=== PATIENT | female | born 1945 | race Caucasian/White ===

== ENCOUNTER 2019-04-04 17:26 | Emergency (ER) | payer MEDICARE ==
[~2019-04-04] VITALS: Ht 162.6 cm; Wt 99.8 kg
[2019-04-04 18:00] LABS: BASOPHILS ABSOLUTE AUTO 0.05 K/mm3 (0.00-0.23); BASOPHILS PERCENT AUTO 1 % (0-2); EOSINOPHILS PERCENT AUTO 0 % (0-6); Hematocrit 38.2 % (33.0-51.0); Hemoglobin 12.4 g/dL (11.5-16.0); IMMATURE GRAN ABSOLUTE AUTO 0.03 K/mm3 (0.00-0.10); IMMATURE GRAN PERCENT AUTO 0 % (0-1); LYMPHOCYTES ABSOLUTE AUTO 1.34 K/mm3 (0.84-5.20); LYMPHOCYTES PERCENT AUTO 13 % (21-46); MONOCYTES ABSOLUTE AUTO 0.92 K/mm3 (0.16-1.47); MONOCYTES PERCENT AUTO 9 % (4-13); Mean Corpuscular HGB 25.2 pg (26.0-34.0); Mean Corpuscular HGB Conc 32.5 g/dL (31.5-36.5); Mean Corpuscular Volume 78 fL (80-100); Mean Platelet Volume 9.5 fL (9.1-12.4); NEUTROPHILS ABSOLUTE AUTO 7.76 K/mm3 (1.96-9.15); NEUTROPHILS PERCENT AUTO 77 % (41-73); Platelet Count 293 K/mm3 (150-400); RDW Coefficient Variation 16.4 % (11.7-14.2); RDW Standard Deviation 46.2 fL (35.1-46.3); Red Blood Cell Count 4.93 M/mm3 (3.80-5.20)
[2019-04-04 18:15] LABS: Albumin, Blood 3.4 g/dL (3.4-5.0); Albumin/Globulin Ratio 0.8 (0.8-1.8); Bilirubin, Total 0.5 mg/dL (0.1-1.0); Bun/Creatinine Ratio 14.6 (12.0-20.0); Calcium, Blood 9.1 mg/dL (8.5-10.1); Creatinine, Blood 1.03 mg/dL (0.40-1.00); Globulin, Blood 4.2 g/dL (2.2-4.0); Potassium, Blood 3.3 mmol/L (3.5-5.5); Total Protein, Blood 7.6 g/dL (6.4-8.2)
== END 2019-04-04 18:45 | disposition home or self-care (01) ==
LOC: ER 17:26
PROVIDERS: Emergency Medicine
DX: R53.83 Other fatigue (principal)
CPT/HCPCS: 80053; 85025; 99283

== ENCOUNTER 2020-05-21 19:32 | Emergency (ER) | payer MEDICARE ==
[~2020-05-21] VITALS: Ht 160 cm; Wt 88.5 kg
[2020-05-21 20:50] LABS: BASOPHILS ABSOLUTE AUTO 0.08 K/mm3 (0.00-0.23); BASOPHILS PERCENT AUTO 1 % (0-2); EOSINOPHILS ABSOLUTE AUTO 0.18 K/mm3 (0.00-0.68); EOSINOPHILS PERCENT AUTO 2 % (0-6); Hemoglobin 13.3 g/dL (11.5-16.0); IMMATURE GRAN ABSOLUTE AUTO 0.04 K/mm3 (0.00-0.10); IMMATURE GRAN PERCENT AUTO 0 % (0-1); LYMPHOCYTES ABSOLUTE AUTO 2.26 K/mm3 (0.84-5.20); LYMPHOCYTES PERCENT AUTO 23 % (21-46); MONOCYTES ABSOLUTE AUTO 0.54 K/mm3 (0.16-1.47); MONOCYTES PERCENT AUTO 6 % (4-13); Mean Corpuscular HGB 26.8 pg (26.0-34.0); Mean Corpuscular HGB Conc 32.4 g/dL (31.5-36.5); Mean Corpuscular Volume 83 fL (80-100); Mean Platelet Volume 9.7 fL (9.1-12.4); NEUTROPHILS ABSOLUTE AUTO 6.59 K/mm3 (1.96-9.15); NEUTROPHILS PERCENT AUTO 68 % (41-73); Platelet Count 382 K/mm3 (150-400); RDW Coefficient Variation 16.4 % (11.7-14.2); RDW Standard Deviation 49.4 fL (35.1-46.3); Red Blood Cell Count 4.96 M/mm3 (3.80-5.20); White Blood Cell Count 9.69 K/mm3 (4.00-11.30)
[2020-05-21 21:22] LABS: Albumin, Blood 3.7 g/dL (3.4-5.0); Albumin/Globulin Ratio 0.9 (0.8-1.8); Bilirubin, Total 0.3 mg/dL (0.1-1.0); Bun/Creatinine Ratio 14.4 (12.0-20.0); Calcium, Blood 9.5 mg/dL (8.5-10.1); Creatinine, Blood 1.18 mg/dL (0.40-1.00); Globulin, Blood 4.1 g/dL (2.2-4.0); Potassium, Blood 3.9 mmol/L (3.5-5.5); Total Protein, Blood 7.8 g/dL (6.4-8.2)
[2020-05-21 22:17] LABS: Magnesium, Blood 1.9 mg/dL (1.6-2.4); Troponin I <0.015 ng/mL (0.000-0.040)
[2020-05-21 22:39] LABS: Source, Urine Clean Catch
[2020-05-21 22:41] LABS: Bilirubin, Urine Neg (Neg); Blood, Urine Neg (Neg); Glucose Qualitative, Urine Neg (Neg); Ketones, Urine Neg (Neg); Leukocyte Esterase, Urine 3+ (Neg); Nitrite, Urine Neg (Neg); Protein, Urine Neg (Neg); Urobilinogen, Urine NORM (Normal)
[2020-05-21 22:44] LABS: Appearance, Urine Clear (Clear); Color, Urine Yellow (P-Yellow)
[2020-05-21 22:51] LABS: Bacteria Few /hpf; Red Blood Cells, Urine 0-2 /hpf (0-2); Squamous Epithelial Cells Few /hpf (Few)
== END 2020-05-21 23:55 | disposition home or self-care (01) ==
LOC: ER 19:32
PROVIDERS: Emergency Medicine; Physician Assistant
DX: R53.1 Weakness (principal); R07.2 Precordial pain; E11.9 Type 2 diabetes mellitus without complications; I10 Essential (primary) hypertension; Z87.891 Personal history of nicotine dependence
CPT/HCPCS: 36415; 70450; 71045; 80053; 81001; 83735; 84484; 85025; 87086; 93005; 93010; 99285-25

== ENCOUNTER 2020-10-12 10:35 | Emergency (ER) | payer MEDICARE ==
[~2020-10-12] VITALS: Ht 160 cm; Wt 96.6 kg
[2020-10-12 11:13] LABS: BASOPHILS ABSOLUTE AUTO 0.05 K/mm3 (0.00-0.23); BASOPHILS PERCENT AUTO 1 % (0-2); EOSINOPHILS ABSOLUTE AUTO 0.11 K/mm3 (0.00-0.68); EOSINOPHILS PERCENT AUTO 1 % (0-6); Hematocrit 36.1 % (33.0-51.0); Hemoglobin 11.7 g/dL (11.5-16.0); IMMATURE GRAN ABSOLUTE AUTO 0.07 K/mm3 (0.00-0.10); IMMATURE GRAN PERCENT AUTO 1 % (0-1); LYMPHOCYTES ABSOLUTE AUTO 1.95 K/mm3 (0.84-5.20); LYMPHOCYTES PERCENT AUTO 19 % (21-46); MONOCYTES ABSOLUTE AUTO 0.49 K/mm3 (0.16-1.47); MONOCYTES PERCENT AUTO 5 % (4-13); Mean Corpuscular HGB Conc 32.4 g/dL (31.5-36.5); Mean Corpuscular Volume 83 fL (80-100); Mean Platelet Volume 9.9 fL (9.1-12.4); NEUTROPHILS ABSOLUTE AUTO 7.57 K/mm3 (1.96-9.15); NEUTROPHILS PERCENT AUTO 74 % (41-73); Platelet Count 308 K/mm3 (150-400); RDW Coefficient Variation 15.5 % (11.7-14.2); RDW Standard Deviation 47.6 fL (35.1-46.3); Red Blood Cell Count 4.33 M/mm3 (3.80-5.20); White Blood Cell Count 10.24 K/mm3 (4.00-11.30)
[2020-10-12 11:48] LABS: Alanine Aminotransfer (ALT/SGP 16 U/L (12-78); Albumin, Blood 3.5 g/dL (3.4-5.0); Albumin/Globulin Ratio 0.9 (0.8-1.8); Alk Phos 114 U/L (50-136); Anion Gap 8 mmol/L (6-16); Aspartate Aminotrans (AST/SGOT 8 U/L (12-37); Bilirubin, Total 0.4 mg/dL (0.1-1.0); Blood Urea Nitrogen 17 mg/dL (8-24); Bun/Creatinine Ratio 15.6 (12.0-20.0); CO2, Blood 25 mmol/L (21-32); Chloride, Blood 104 mmol/L (98-108); Creatinine, Blood 1.09 mg/dL (0.40-1.00); Globulin, Blood 3.9 g/dL (2.2-4.0); Glomerular Filtration Rate 49 (60-); Glucose, Blood 163 mg/dL (70-99); Potassium, Blood 3.6 mmol/L (3.5-5.5); Sodium, Blood 137 mmol/L (136-145); Total Protein, Blood 7.4 g/dL (6.4-8.2); Troponin I <0.015 ng/mL (0.000-0.040)
[2020-10-12] MEDS ORDERED: HYDR1TAB94 PO (13:51)
== END 2020-10-12 14:00 | disposition home or self-care (01) ==
LOC: ER 10:35
PROVIDERS: Emergency Medicine
DX: S70.02XA Contusion of left hip, initial encounter (principal); W18.30XA Fall on same level, unspecified, initial encounter
CPT/HCPCS: 36415; 72192; 73502; 80053; 84484; 85025; 93005; 93010; 96374; 96375; 99284-25; J2270; J2405

== ENCOUNTER → 2020-10-29 | Outpatient (CLI) | payer MEDICARE ==
[~2020-10-29] MED LIST: HYDR1TAB94 PO
[2020-10-29 15:30] LABS: Source, Urine Clean Catch
[2020-10-29 16:18] LABS: Appearance, Urine Clear (Clear); Bilirubin, Urine Neg (Neg); Blood, Urine Neg (Neg); Color, Urine Yellow (P-Yellow); Glucose Qualitative, Urine Neg (Neg); Ketones, Urine Neg (Neg); Leukocyte Esterase, Urine Neg (Neg); Nitrite, Urine Neg (Neg); Protein, Urine Neg (Neg); Specific Gravity, Urine 1.005 (1.003-1.022); Urobilinogen, Urine NORM (Normal)
== END | disposition home or self-care (01) ==
LOC: LAB SHORT 15:29 → LAB 15:29
PROVIDERS: Nurse Practitioner Family
DX: G47.51 Confusional arousals (principal)
CPT/HCPCS: 81003

== ENCOUNTER 2021-02-08 17:10 | Emergency (ER) | payer MEDICARE ==
[~2021-02-08] VITALS: Ht 165.1 cm; Wt 88.5 kg
[2021-02-08 17:51] LABS: BASOPHILS ABSOLUTE AUTO 0.09 K/mm3 (0.00-0.23); BASOPHILS PERCENT AUTO 1 % (0-2); EOSINOPHILS ABSOLUTE AUTO 0.12 K/mm3 (0.00-0.68); EOSINOPHILS PERCENT AUTO 1 % (0-6); Hematocrit 37.9 % (33.0-51.0); Hemoglobin 12.2 g/dL (11.5-16.0); IMMATURE GRAN ABSOLUTE AUTO 0.06 K/mm3 (0.00-0.10); IMMATURE GRAN PERCENT AUTO 1 % (0-1); LYMPHOCYTES ABSOLUTE AUTO 1.87 K/mm3 (0.84-5.20); LYMPHOCYTES PERCENT AUTO 18 % (21-46); MONOCYTES ABSOLUTE AUTO 0.86 K/mm3 (0.16-1.47); MONOCYTES PERCENT AUTO 8 % (4-13); Mean Corpuscular HGB 26.3 pg (26.0-34.0); Mean Corpuscular HGB Conc 32.2 g/dL (31.5-36.5); Mean Corpuscular Volume 82 fL (80-100); Mean Platelet Volume 9.8 fL (9.1-12.4); NEUTROPHILS ABSOLUTE AUTO 7.32 K/mm3 (1.96-9.15); NEUTROPHILS PERCENT AUTO 71 % (41-73); Platelet Count 292 K/mm3 (150-400); Red Blood Cell Count 4.63 M/mm3 (3.80-5.20); White Blood Cell Count 10.32 K/mm3 (4.00-11.30)
[2021-02-08 18:15] LABS: Alanine Aminotransfer (ALT/SGP 76 U/L (12-78); Albumin, Blood 2.7 g/dL (3.4-5.0); Albumin/Globulin Ratio 0.6 (0.8-1.8); Alk Phos 264 U/L (50-136); Anion Gap 6 mmol/L (6-16); Aspartate Aminotrans (AST/SGOT 109 U/L (12-37); Bilirubin, Total 0.4 mg/dL (0.1-1.0); Blood Urea Nitrogen 13 mg/dL (8-24); Bun/Creatinine Ratio 12.3 (12.0-20.0); CO2, Blood 27 mmol/L (21-32); Calcium, Blood 8.9 mg/dL (8.5-10.1); Chloride, Blood 102 mmol/L (98-108); Creatinine, Blood 1.06 mg/dL (0.40-1.00); Globulin, Blood 4.5 g/dL (2.2-4.0); Glomerular Filtration Rate 51 (60-); Glucose, Blood 104 mg/dL (70-99); Potassium, Blood 3.5 mmol/L (3.5-5.5); Sodium, Blood 135 mmol/L (136-145); Total Protein, Blood 7.2 g/dL (6.4-8.2); Troponin I <0.015 ng/mL (0.000-0.040)
[2021-02-08] MEDS ORDERED: Amoxicillin875 MG PO (19:14)
[2021-02-08] MEDS ORDERED: Magnesium Citr296 ML PO (19:14)
[2021-02-08] MEDS ORDERED: Colace100 MG PO (19:14)
== END 2021-02-08 20:25 | disposition home or self-care (01) ==
LOC: ER 17:10
PROVIDERS: Physician Assistant
DX: R05.9 Cough, unspecified (principal); R06.02 Shortness of breath; Z79.899 Other long term (current) drug therapy
CPT/HCPCS: 36415; 71046; 80053; 83690; 83880; 84484; 85025; 93005; 93010; 99284-25

== ENCOUNTER 2021-02-12 11:46 | Emergency (ER) | payer MEDICARE ==
[~2021-02-12] VITALS: Ht 160 cm; Wt 95.7 kg
[~2021-02-12 11:46] MED LIST changes: +Amoxicillin875 MG PO; +Colace100 MG PO; +Magnesium Citr296 ML PO
[2021-02-12 12:27] LABS: BASOPHILS ABSOLUTE AUTO 0.08 K/mm3 (0.00-0.23); BASOPHILS PERCENT AUTO 1 % (0-2); EOSINOPHILS ABSOLUTE AUTO 0.05 K/mm3 (0.00-0.68); EOSINOPHILS PERCENT AUTO 0 % (0-6); Hematocrit 36.6 % (33.0-51.0); Hemoglobin 11.7 g/dL (11.5-16.0); IMMATURE GRAN ABSOLUTE AUTO 0.09 K/mm3 (0.00-0.10); IMMATURE GRAN PERCENT AUTO 1 % (0-1); LYMPHOCYTES ABSOLUTE AUTO 1.93 K/mm3 (0.84-5.20); LYMPHOCYTES PERCENT AUTO 14 % (21-46); MONOCYTES ABSOLUTE AUTO 1.08 K/mm3 (0.16-1.47); MONOCYTES PERCENT AUTO 8 % (4-13); Mean Corpuscular HGB 25.8 pg (26.0-34.0); Mean Corpuscular Volume 81 fL (80-100); Mean Platelet Volume 9.7 fL (9.1-12.4); NEUTROPHILS PERCENT AUTO 76 % (41-73); Platelet Count 252 K/mm3 (150-400); RDW Coefficient Variation 15.1 % (11.7-14.2); RDW Standard Deviation 44.2 fL (35.1-46.3); Red Blood Cell Count 4.54 M/mm3 (3.80-5.20); White Blood Cell Count 13.63 K/mm3 (4.00-11.30)
[2021-02-12 12:51] LABS: Alanine Aminotransfer (ALT/SGP 69 U/L (12-78); Albumin, Blood 2.4 g/dL (3.4-5.0); Albumin/Globulin Ratio 0.6 (0.8-1.8); Alk Phos 279 U/L (50-136); Anion Gap 11 mmol/L (6-16); Aspartate Aminotrans (AST/SGOT 104 U/L (12-37); Bilirubin, Total 0.6 mg/dL (0.1-1.0); Blood Urea Nitrogen 14 mg/dL (8-24); Bun/Creatinine Ratio 14.7 (12.0-20.0); CO2, Blood 21 mmol/L (21-32); Calcium, Blood 8.6 mg/dL (8.5-10.1); Chloride, Blood 101 mmol/L (98-108); Creatinine, Blood 0.95 mg/dL (0.40-1.00); Globulin, Blood 4.3 g/dL (2.2-4.0); Glomerular Filtration Rate 57 (60-); Glucose, Blood 108 mg/dL (70-99); Potassium, Blood 3.5 mmol/L (3.5-5.5); Sodium, Blood 133 mmol/L (136-145); Total Protein, Blood 6.7 g/dL (6.4-8.2); Troponin I <0.015 ng/mL (0.000-0.040)
[2021-02-12 13:26] LABS: Influenza A, PCR NEGATIVE (NEGATIVE); Influenza B, PCR NEGATIVE (NEGATIVE); Resp Syncytial Virus, PCR NEGATIVE (NEGATIVE); SARS-Cov-2 (COVID-19) PCR, MMC NEGATIVE (NEGATIVE)
[2021-02-12] MEDS ORDERED: ALBU90OI INH (15:29)
== END 2021-02-12 15:45 | disposition home or self-care (01) ==
LOC: ER 11:46
PROVIDERS: Emergency Medicine
DX: J20.9 Acute bronchitis, unspecified (principal); J42 Unspecified chronic bronchitis; E11.9 Type 2 diabetes mellitus without complications; I10 Essential (primary) hypertension; Z79.899 Other long term (current) drug therapy
CPT/HCPCS: 0241U; 36415; 71045; 74018; 80053; 84145; 84484; 85025; 93005; 93010; 99285-25; A9270

== ENCOUNTER 2021-02-16 20:20 | Emergency (ER) | payer MEDICARE ==
[~2021-02-16] VITALS: Ht 160 cm; Wt 90.7 kg
[~2021-02-16 20:20] MED LIST changes: +ALBU90OI INH
[2021-02-16 20:47] LABS: BASOPHILS ABSOLUTE AUTO 0.05 K/mm3 (0.00-0.23); BASOPHILS PERCENT AUTO 0 % (0-2); EOSINOPHILS ABSOLUTE AUTO 0.05 K/mm3 (0.00-0.68); EOSINOPHILS PERCENT AUTO 0 % (0-6); Hematocrit 35.4 % (33.0-51.0); Hemoglobin 11.4 g/dL (11.5-16.0); IMMATURE GRAN ABSOLUTE AUTO 0.14 K/mm3 (0.00-0.10); IMMATURE GRAN PERCENT AUTO 1 % (0-1); LYMPHOCYTES ABSOLUTE AUTO 2.94 K/mm3 (0.84-5.20); LYMPHOCYTES PERCENT AUTO 19 % (21-46); MONOCYTES ABSOLUTE AUTO 1.85 K/mm3 (0.16-1.47); MONOCYTES PERCENT AUTO 12 % (4-13); Mean Corpuscular HGB 25.8 pg (26.0-34.0); Mean Corpuscular HGB Conc 32.2 g/dL (31.5-36.5); Mean Corpuscular Volume 80 fL (80-100); Mean Platelet Volume 10.1 fL (9.1-12.4); NEUTROPHILS ABSOLUTE AUTO 10.16 K/mm3 (1.96-9.15); NEUTROPHILS PERCENT AUTO 67 % (41-73); Platelet Count 276 K/mm3 (150-400); RDW Coefficient Variation 15.2 % (11.7-14.2); RDW Standard Deviation 44.1 fL (35.1-46.3); Red Blood Cell Count 4.42 M/mm3 (3.80-5.20); White Blood Cell Count 15.19 K/mm3 (4.00-11.30)
[2021-02-16] MEDS ORDERED: DONEPEZIL HCL10 M1 PO (20:53)
[2021-02-16] MEDS ORDERED: AMLODIPINE BES2.5 MG PO (20:54)
[2021-02-16] MEDS ORDERED: ATORVASTATIN CA20 MG PO (20:54)
[2021-02-16] MEDS ORDERED: GLIP10 (20:54)
[2021-02-16] MEDS ORDERED: BUPR100ER PO (20:54)
[2021-02-16] MEDS ORDERED: MEMANTINE HCL PO (20:55)
[2021-02-16] MEDS ORDERED: LOSARTAN POTAS100 MG PO (20:55)
[2021-02-16] MEDS ORDERED: HYDCHL12.5 PO (20:55)
[2021-02-16] MEDS ORDERED: KLOR-CON 1010 ME5 PO (20:56)
[2021-02-16] MEDS ORDERED: OMEP20ER PO (20:56)
[2021-02-16 20:58] LABS: Source, Urine Clean Catch
[2021-02-16 21:02] LABS: Appearance, Urine Hazy (Clear); Bilirubin, Urine Neg (Neg); Blood, Urine 1+ (Neg); Color, Urine Amber (P-Yellow); Glucose Qualitative, Urine Neg (Neg); Ketones, Urine Neg (Neg); Leukocyte Esterase, Urine Neg (Neg); Nitrite, Urine Neg (Neg); Protein, Urine 2+ (Neg); Urobilinogen, Urine 2+ (Normal)
[2021-02-16 21:08] LABS: Troponin I <0.015 ng/mL (0.000-0.040)
[2021-02-16 21:12] LABS: Alanine Aminotransfer (ALT/SGP 60 U/L (12-78); Albumin, Blood 2.1 g/dL (3.4-5.0); Albumin/Globulin Ratio 0.5 (0.8-1.8); Alk Phos 274 U/L (50-136); Anion Gap 9 mmol/L (6-16); Aspartate Aminotrans (AST/SGOT 104 U/L (12-37); Bilirubin, Total 0.8 mg/dL (0.1-1.0); Blood Urea Nitrogen 21 mg/dL (8-24); Bun/Creatinine Ratio 17.6 (12.0-20.0); CO2, Blood 24 mmol/L (21-32); Calcium, Blood 8.3 mg/dL (8.5-10.1); Chloride, Blood 98 mmol/L (98-108); Creatinine, Blood 1.19 mg/dL (0.40-1.00); Globulin, Blood 4.4 g/dL (2.2-4.0); Glomerular Filtration Rate 44 (60-); Glucose, Blood 147 mg/dL (70-99); Potassium, Blood 3.1 mmol/L (3.5-5.5); Sodium, Blood 131 mmol/L (136-145); Total Protein, Blood 6.5 g/dL (6.4-8.2)
[2021-02-16 21:22] LABS: Red Blood Cells, Urine 0-2 /hpf (0-2)
[2021-02-16 21:24] LABS: Bacteria Few /hpf; Mucus Light (0-Heavy); Squamous Epithelial Cells Few /hpf (Few); WBC Cast 0-2 /lpf (0)
[2021-02-16 21:25] LABS: Other Crystals Mod /hpf
== END 2021-02-16 23:50 | disposition home or self-care (01) ==
LOC: ER 20:20
PROVIDERS: Emergency Medicine
DX: J20.9 Acute bronchitis, unspecified (principal); E86.0 Dehydration; I10 Essential (primary) hypertension; Z79.899 Other long term (current) drug therapy; Z79.84 Long term (current) use of oral hypoglycemic drugs
CPT/HCPCS: 36415; 71045; 73502; 80053; 81001; 83880; 84484; 85025; 93005; 93010; 99284-25; A9270; J7120

== ENCOUNTER 2021-03-05 11:35 | Emergency (ER) | payer MEDICARE ==
[~2021-03-05] VITALS: Ht 160 cm; Wt 90.7 kg
[~2021-03-05 11:35] MED LIST changes: +AMLODIPINE BES2.5 MG PO; +ATORVASTATIN CA20 MG PO; +BUPR100ER PO; +DONEPEZIL HCL10 M1 PO; +GLIP10; +HYDCHL12.5 PO; +KLOR-CON 1010 ME5 PO; +LOSARTAN POTAS100 MG PO; +MEMANTINE HCL PO; +OMEP20ER PO
[2021-03-05 13:26] LABS: Alanine Aminotransfer (ALT/SGP 83 U/L (12-78); Albumin/Globulin Ratio 0.5 (0.8-1.8); Alk Phos 350 U/L (50-136); Anion Gap 10 mmol/L (6-16); Aspartate Aminotrans (AST/SGOT 172 U/L (12-37); Bilirubin, Total 1.5 mg/dL (0.1-1.0); Blood Urea Nitrogen 18 mg/dL (8-24); CO2, Blood 27 mmol/L (21-32); Calcium, Blood 8.7 mg/dL (8.5-10.1); Chloride, Blood 99 mmol/L (98-108); Creatinine, Blood 0.95 mg/dL (0.40-1.00); Globulin, Blood 4.4 g/dL (2.2-4.0); Glomerular Filtration Rate 58 (60-); Glucose, Blood 94 mg/dL (70-99); Potassium, Blood 3.6 mmol/L (3.5-5.5); Sodium, Blood 136 mmol/L (136-145); Total Protein, Blood 6.4 g/dL (6.4-8.2); Troponin I <0.015 ng/mL (0.000-0.040)
[2021-03-05 13:39] LABS: BASOPHILS PERCENT AUTO 1 % (0-2); EOSINOPHILS ABSOLUTE AUTO 0.04 K/mm3 (0.00-0.68); EOSINOPHILS PERCENT AUTO 0 % (0-6); Hematocrit 38.4 % (33.0-51.0); Hemoglobin 12.1 g/dL (11.5-16.0); IMMATURE GRAN ABSOLUTE AUTO 0.12 K/mm3 (0.00-0.10); IMMATURE GRAN PERCENT AUTO 1 % (0-1); LYMPHOCYTES ABSOLUTE AUTO 2.38 K/mm3 (0.84-5.20); LYMPHOCYTES PERCENT AUTO 18 % (21-46); MONOCYTES ABSOLUTE AUTO 1.43 K/mm3 (0.16-1.47); MONOCYTES PERCENT AUTO 11 % (4-13); Mean Corpuscular HGB 24.7 pg (26.0-34.0); Mean Corpuscular HGB Conc 31.5 g/dL (31.5-36.5); Mean Corpuscular Volume 78 fL (80-100); Mean Platelet Volume 9.8 fL (9.1-12.4); NEUTROPHILS ABSOLUTE AUTO 9.26 K/mm3 (1.96-9.15); NEUTROPHILS PERCENT AUTO 69 % (41-73); Platelet Count 265 K/mm3 (150-400); RDW Coefficient Variation 16.9 % (11.7-14.2); RDW Standard Deviation 47.8 fL (35.1-46.3); White Blood Cell Count 13.33 K/mm3 (4.00-11.30)
== END 2021-03-05 15:05 | disposition home or self-care (01) ==
LOC: ER 11:35
PROVIDERS: Emergency Medicine
DX: R07.9 Chest pain, unspecified (principal); I10 Essential (primary) hypertension; E11.9 Type 2 diabetes mellitus without complications; F03.90 Unspecified dementia, unspecified severity, without behavioral disturbance, psychotic disturbance, mood disturbance, and anxiety; Z79.899 Other long term (current) drug therapy
CPT/HCPCS: 71045; 80053; 83690; 84484; 85025; 93005; 93010; 99285-25

== ENCOUNTER 2021-03-24 12:48 | Inpatient (IN) | payer MEDICARE ==
[~2021-03-24] VITALS: Ht 160 cm; Wt 72.6 kg
[2021-03-24 13:36] LABS: BASOPHILS ABSOLUTE AUTO 0.04 K/mm3 (0.00-0.23); BASOPHILS PERCENT AUTO 0 % (0-2); EOSINOPHILS ABSOLUTE AUTO 0.02 K/mm3 (0.00-0.68); EOSINOPHILS PERCENT AUTO 0 % (0-6); Hematocrit 48.8 % (33.0-51.0); Hemoglobin 15.9 g/dL (11.5-16.0); IMMATURE GRAN ABSOLUTE AUTO 0.13 K/mm3 (0.00-0.10); IMMATURE GRAN PERCENT AUTO 1 % (0-1); LYMPHOCYTES ABSOLUTE AUTO 2.86 K/mm3 (0.84-5.20); LYMPHOCYTES PERCENT AUTO 18 % (21-46); MONOCYTES ABSOLUTE AUTO 1.13 K/mm3 (0.16-1.47); MONOCYTES PERCENT AUTO 7 % (4-13); Mean Corpuscular HGB 24.6 pg (26.0-34.0); Mean Corpuscular HGB Conc 32.6 g/dL (31.5-36.5); Mean Corpuscular Volume 75 fL (80-100); NEUTROPHILS ABSOLUTE AUTO 11.95 K/mm3 (1.96-9.15); NEUTROPHILS PERCENT AUTO 74 % (41-73); Platelet Count 194 K/mm3 (150-400); RDW Coefficient Variation 21.1 % (11.7-14.2); RDW Standard Deviation 51.9 fL (35.1-46.3); Red Blood Cell Count 6.47 M/mm3 (3.80-5.20); White Blood Cell Count 16.13 K/mm3 (4.00-11.30)
[2021-03-24 13:38] LABS: Mean Platelet Volume 10.3 fL (9.1-12.4)
[2021-03-24 14:06] LABS: Albumin, Blood 2.4 g/dL (3.4-5.0); Albumin/Globulin Ratio 0.5 (0.8-1.8); Bilirubin, Total 2.7 mg/dL (0.1-1.0); Bun/Creatinine Ratio 18.2 (12.0-20.0); Calcium, Blood 8.5 mg/dL (8.5-10.1); Creatinine, Blood 4.45 mg/dL (0.40-1.00); Globulin, Blood 4.7 g/dL (2.2-4.0); Potassium, Blood 4.1 mmol/L (3.5-5.5); Total Protein, Blood 7.1 g/dL (6.4-8.2)
[2021-03-24 14:23] LABS: Influenza A, PCR NEGATIVE (NEGATIVE); Influenza B, PCR NEGATIVE (NEGATIVE); Resp Syncytial Virus, PCR NEGATIVE (NEGATIVE); SARS-Cov-2 (COVID-19) PCR, MMC NEGATIVE (NEGATIVE)
[2021-03-24 15:07] LABS: International Normalized Ratio 2.13; Prothrombin Time Results 21.3 Sec (9.7-11.5)
[2021-03-24 16:50] LABS: Source, Urine Catheter
[2021-03-24 16:55] LABS: Blood, Urine 1+ (Neg); Color, Urine Amber (P-Yellow); Glucose Qualitative, Urine Neg (Neg); Ketones, Urine Neg (Neg); Leukocyte Esterase, Urine 1+ (Neg); Nitrite, Urine Neg (Neg); Protein, Urine 2+ (Neg); Urobilinogen, Urine 2+ (Normal)
[2021-03-24 16:59] LABS: Bilirubin, Urine 1+ (Neg)
[2021-03-24 17:11] LABS: Appearance, Urine Hazy (Clear)
[2021-03-24 17:15] LABS: Bacteria Many /hpf; Red Blood Cells, Urine 0-2 /hpf (0-2); Squamous Epithelial Cells Few /hpf (Few)
[2021-03-24] MEDS ORDERED: BUPR150ER PO (21:40)
[2021-03-24 21:43] LABS: Albumin, Blood 1.6 g/dL (3.4-5.0); Anion Gap 17 mmol/L (6-16); Blood Urea Nitrogen 76 mg/dL (8-24); Bun/Creatinine Ratio 20.1 (12.0-20.0); CO2, Blood 17 mmol/L (21-32); Calcium, Blood 7.2 mg/dL (8.5-10.1); Chloride, Blood 104 mmol/L (98-108); Creatinine, Blood 3.79 mg/dL (0.40-1.00); Glomerular Filtration Rate 12 (60-); Glucose, Blood 128 mg/dL (70-99); Phosphorus, Blood 5.7 mg/dL (2.5-4.9); Potassium, Blood 3.8 mmol/L (3.5-5.5); Sodium, Blood 138 mmol/L (136-145)
--- NOTE | 2021-03-25 04:48 | NUR ---
PATIENT WAS ALERT AND ORIENTED X2, PATIENT'S BP WAS ON THE LOW END BUT IT IMPROVED AFTER GIVING HER SOME NORMAL SALINE. PATIENT COMPLAINED OF PAIN AND WAS GIVEN TRAMADOL BUT SHE WAS STILL IN PAIN SO SHE WAS TREATED WITH OXYCODONE. CALL LIGHT WITH IN REACH AND BED DOWN TO THE LOWEST POSITION, WILL CONTINUE TO MONITOR UNTIL HAND OFF.
[2021-03-25 05:31] LABS: Hematocrit 37.1 % (33.0-51.0); Mean Corpuscular HGB 24.4 pg (26.0-34.0); Mean Corpuscular HGB Conc 32.3 g/dL (31.5-36.5); Mean Corpuscular Volume 76 fL (80-100); Mean Platelet Volume 10.5 fL (9.1-12.4); Platelet Count 178 K/mm3 (150-400); RDW Coefficient Variation 20.1 % (11.7-14.2); RDW Standard Deviation 52.9 fL (35.1-46.3); Red Blood Cell Count 4.91 M/mm3 (3.80-5.20); White Blood Cell Count 15.14 K/mm3 (4.00-11.30)
[2021-03-25 05:47] LABS: International Normalized Ratio 2.24; Prothrombin Time Results 22.3 Sec (9.7-11.5)
[2021-03-25 06:48] LABS: Albumin, Blood 1.7 g/dL (3.4-5.0); Albumin/Globulin Ratio 0.4 (0.8-1.8); Bilirubin, Total 2.3 mg/dL (0.1-1.0); Bun/Creatinine Ratio 22.2 (12.0-20.0); Calcium, Blood 7.9 mg/dL (8.5-10.1); Creatinine, Blood 3.51 mg/dL (0.40-1.00); Globulin, Blood 3.8 g/dL (2.2-4.0); Potassium, Blood 3.8 mmol/L (3.5-5.5); Total Protein, Blood 5.5 g/dL (6.4-8.2)
[2021-03-25 11:12] LABS: Alpha Feto Protein, Tumor Mkr 4.3 ng/mL (0.0-8.0); Carcinoembryonic Antigen 115.7 ng/mL (0.0-3.0)
--- NOTE | 2021-03-25 17:15 | NUR ---
SHIFT SUMMARY; PATIENT WAS COMPLAINING OF PAIN IN HER BACK CHEST AND ABDOMEN. CHEST PAIN COULD BE REPRODUCED WITH PALPITATION. GOT WORSE WITH INSPIRATION AND EXPIRATIONS. HEEL SEAT TRIMMER ADVISED NO CHANGES IN RHYTHM OR RATE. NOTIFIED AND VERBAL ORDER TO START IV SOLUMEDROL 60MG Q12 FIRST DOSE NOW. PATIENT RECEIVED MRI OF HEAD TODAY. SHE TOLERATED WELL. NADN WHEN PAITENT RETURNED TO ROOM. PATIENT WAS MEDICATED WITH 10MG ROXYCODONE 15 MINPRIOR TO MRI AND 25MG IV FENTANYL 1 HOUR PRIOR TO MRI WITH MINIMAL RESULTS. PATIENT HAS HERNANDEZ IN PLACE WITH JASS URINE NOTED. WILL CONTINUE TO MONITOR THIS PATIENT UNTIL HAND OFF AND REPORT TO NOC SHIFT RN REEMA BUTT RN
--- NOTE | 2021-03-26 04:29 | NUR ---
PATIENT WAS ALERT AND ORIENTED X3, STABLE VITAL SIGNS, NO ACUTE CHANGES. PATIENT DENIED ANY PAIN. HERNANDEZ WAS PATENT. PATIENT SLEPT FOR MOST OF THE NIGHT. CALL LIGHT WITHIN REACH AND BED DOWN TO THE LOWEST POSITION. WILL CONTINUE TO MONITOR UNTIL HAND OFF.
[2021-03-26 05:16] LABS: BASOPHILS ABSOLUTE AUTO 0.01 K/mm3 (0.00-0.23); BASOPHILS PERCENT AUTO 0 % (0-2); EOSINOPHILS PERCENT AUTO 0 % (0-6); Hematocrit 41.2 % (33.0-51.0); IMMATURE GRAN PERCENT AUTO 1 % (0-1); LYMPHOCYTES ABSOLUTE AUTO 1.31 K/mm3 (0.84-5.20); LYMPHOCYTES PERCENT AUTO 10 % (21-46); MONOCYTES ABSOLUTE AUTO 0.13 K/mm3 (0.16-1.47); MONOCYTES PERCENT AUTO 1 % (4-13); Mean Corpuscular HGB 24.3 pg (26.0-34.0); Mean Corpuscular HGB Conc 31.6 g/dL (31.5-36.5); Mean Corpuscular Volume 77 fL (80-100); Mean Platelet Volume 9.9 fL (9.1-12.4); NEUTROPHILS ABSOLUTE AUTO 11.47 K/mm3 (1.96-9.15); NEUTROPHILS PERCENT AUTO 88 % (41-73); Platelet Count 188 K/mm3 (150-400); RDW Coefficient Variation 21.2 % (11.7-14.2); RDW Standard Deviation 55.7 fL (35.1-46.3); Red Blood Cell Count 5.36 M/mm3 (3.80-5.20); White Blood Cell Count 13.02 K/mm3 (4.00-11.30)
[2021-03-26 05:58] LABS: Albumin, Blood 1.9 g/dL (3.4-5.0); Albumin/Globulin Ratio 0.5 (0.8-1.8); Bilirubin, Total 2.6 mg/dL (0.1-1.0); Bun/Creatinine Ratio 26.2 (12.0-20.0); Calcium, Blood 8.5 mg/dL (8.5-10.1); Creatinine, Blood 2.79 mg/dL (0.40-1.00); Globulin, Blood 4.1 g/dL (2.2-4.0); Potassium, Blood 4.5 mmol/L (3.5-5.5)
[2021-03-26 06:09] LABS: HBSAG SCREEN Negative (Negative); HEP A AB, IGM Negative (Negative); HEP B CORE AB, IGM Negative (Negative); HEP C VIRUS AB <0.1 (0.0-0.9)
--- NOTE | 2021-03-26 11:41 | NUR ---
Spoke to pt's daughter Jese Cleveland" by phone. She stated she had spoken to Dr. Pérez regarding what appears to possibly be metastatic cancer causing pt's weight loss, memory issues, etc. She likely still has the Alzheimer's comorbidity as well. Liver biopsy is scheduled for tomorrow, and then the diagnosis will be definitive. Pt's daughter Latasha has vast healthcare experience, and understands what the current prognosis appears to be. She is planning to take pt home with hospice once diagnosis is in place. Pt is pleasantly confused, and pain appears to be well controlled at this time.
--- NOTE | 2021-03-26 13:32 | NUR ---
Pt's daughter is visiting today, and pt is very tearful. She does remember the conversation with the doctor yesterday, and that she has cancer. She is wanting to go home, and unfortunately a liver biopsy can't be done until pt's INR has improved. Due to the labwork and the imaging, the cancer diagnosis is clear, even without the biopsy. Family would like to take pt home, and this was confirmed by Dr. Alvarado. Plan for [facility] today, with d/c home tomorrow. Pt will be admitted to hospice services, unsure of agency at this time. Daughter's preference is [facility].
[2021-03-26 13:45] LABS: International Normalized Ratio 1.31; Prothrombin Time Results 13.5 Sec (9.7-11.5)
--- NOTE | 2021-03-26 14:12 | NUR ---
Pt will be d/c home from hospital and admit with [facility]. Packet send to [facility], who will admit patient tomorrow. They are calling daughter to set up admission times, equipement needs, and a warm handoff. Dr. Alvarado is in agreement with dishcarge plan. Pt is understanding about spending one more night, specifically to allow family to digest the changes, and to work on getting pt's pain under control in the meantime.
--- NOTE | 2021-03-26 14:33 | NUR ---
Pt to discharge tomorrow. Equipment will be dropped off this evening with granddaughter at pt's home. Plan to send pt home by noon tomorrow, [facility] to admit at 1400. .
--- NOTE | 2021-03-26 18:07 | NUR ---
COMFORT CARE SUMMARY PATIENT MEDICATED X2 FOR PAIN WITH GOOD RESULTS. PATIENT WAS ABLE TO SLEEP THIS AFTERNOON. PATIENT SWITCHED TO [facility] THIS AFTERNOON. PER DR. CARROLL AND NAZANIN WITH PALLIATIVE CARE, PLAN IS FOR PATIENT TO GO HOME ON HOSPICE TOMORROW.
--- NOTE | 2021-03-27 04:57 | NUR ---
PATIENT WAS ALERT AND ORIENTED X3, COMFORT CARE , NO ACUTE CHANGES. PATIENT COMPLAINED OF BACK PAIN EARLY SHIFT BUT WSD TREATED WITH OXYDONE. PATIENT SLEPT THROUGH THE NIGHT. HERNANDEZ PATENT. CALL LIGHT WITH REACH, BED DOWN TO THE LOWEST POSITION. WILL CONTINUE TO MONITOR UNTIL HAND OFF.
--- NOTE | 2021-03-27 08:58 | NUR ---
COMFORT CARE NOTE- PT MEDICAED FOR PAIN, 45 MIN AFTER MEDICATION PT REPOSITIONED TO RIGHT SIDE LYING, SHE BEGAN TO CRY SAYING I HURT ALL OVER. STAFF OFFERED TO PUT HER BACK ONTO HER BACK AND SHE STATED NO THE PAIN WAS BETTER ON HER SIDE. MEDICATED WITH ADDITIONAL DOSE OF ROXANOL AFTER REPOSITION.
--- NOTE | 2021-03-27 10:45 | NUR ---
Spiritual care referral. Pt. was awake and in bed. Pt. welcomed my visit. Pt. verbalized a strong desire to go home after a very recent hospice decision. Pt. was still dealing with the trauma of this decision. Explored issues of diogenes and belief. Provided anxiety containment. Pt. responded with catharsis. Prayed with pt. Pt. verbalized gratitude.
[2021-03-27] MEDS ORDERED: BUPR100 PO (11:48)
[2021-03-27] MEDS ORDERED: ACET325 PO (11:48)
[2021-03-27] MEDS ORDERED: DOCU100 PO (11:48)
[2021-03-27] MEDS ORDERED: MORP20L SL (11:49)
[2021-03-27] MEDS ORDERED: PHENERGAN25 MG PR (11:49)
[2021-03-27] MEDS ORDERED: QUET25 PO (11:49)
[2021-03-27] MEDS ORDERED: SENN187 PO (11:50)
[2021-03-27] MEDS ORDERED: TRANSDERM-SCOP1 EAC8 TD (11:50)
--- NOTE | 2021-03-27 12:31 | NUR ---
DISCHARGE PATIENT TRANSPORTED VIA GURNEY TO AMBULANCE. PATIENT DISCHARGED HOME ON HOSPICE. DISCHARGE PACKET SENT WITH PATIENT. HARD SCRIPTS SENT WITH PATIENT. FAMILY CALLED TO INFORM PATIENT IS LEAVING. IV'S REMOVED WITHOUT DIFFICULTY. BELONGINGS SENT WITH PATIENT. MEDICATIONS FAXED TO PERFERRED PHARMACY. [facility] TO MEET PATIENT AND FAMILY AT HOME.
== END 2021-03-27 13:38 | disposition hospice, home (50) | DRG 871 ==
LOC: ER 12:48 → MEDS 18:20 → ERHOLD 18:20 → MEDS 21:49
PROVIDERS: Internal Medicine; Physician Assistant; Student in an Organized Health Care Education/Training Program; ADMIT Internal Medicine
DX: A41.9 Sepsis, unspecified organism (principal); R65.21 Severe sepsis with septic shock; J18.9 Pneumonia, unspecified organism; N18.6 End stage renal disease; E87.2 Acidosis; N12 Tubulo-interstitial nephritis, not specified as acute or chronic; N17.9 Acute kidney failure, unspecified; C78.00 Secondary malignant neoplasm of unspecified lung; C78.7 Secondary malignant neoplasm of liver and intrahepatic bile duct; I12.0 Hypertensive chronic kidney disease with stage 5 chronic kidney disease or end stage renal disease; E44.0 Moderate protein-calorie malnutrition; R29.6 Repeated falls; Z20.822 Contact with and (suspected) exposure to COVID-19; E11.22 Type 2 diabetes mellitus with diabetic chronic kidney disease; R65.20 Severe sepsis without septic shock; E78.5 Hyperlipidemia, unspecified; Z66 Do not resuscitate; K21.9 Gastro-esophageal reflux disease without esophagitis; G30.9 Alzheimer's disease, unspecified; D63.1 Anemia in chronic kidney disease; F02.80 Dementia in other diseases classified elsewhere, unspecified severity, without behavioral disturbance, psychotic disturbance, mood disturbance, and anxiety; Z96.651 Presence of right artificial knee joint; F32.A Depression, unspecified; Z68.28 Body mass index [BMI] 28.0-28.9, adult; G43.909 Migraine, unspecified, not intractable, without status migrainosus; Z87.891 Personal history of nicotine dependence; Z90.89 Acquired absence of other organs; Z98.891 History of uterine scar from previous surgery; Z98.890 Other specified postprocedural states; Z79.82 Long term (current) use of aspirin; Z79.84 Long term (current) use of oral hypoglycemic drugs; Z79.899 Other long term (current) drug therapy
CPT/HCPCS: 0241U; 36415; 51702; 70450; 70551; 71045; 71250; 74176; 80053; 80069; 80074; 81001; 82105; 82378; 82947; 83605; 83880; 84145; 84484; 85025; 85027; 85610; 85730; 87040; 87077; 87086; 87186; 93005; 93010; 96365; 96375; 96376; 97161; 97165; 97530; 97535; 99285-25; A9270; J0456; J1885; J2405; J2543; J2930; J3010; J3430; J7030; J7042; J7050